=== PATIENT | male | born 1980 | race Caucasian/White ===

== ENCOUNTER 2017-09-24 16:00 | Emergency (ER) | payer MEDICAID ==
[~2017-09-24] VITALS: Ht 175.3 cm; Wt 107.0 kg
[2017-09-24 17:12] LABS: CARBON DIOXIDE 30.1 mmol/L (21-32); CHLORIDE SERUM 103 mmol/L (98-107); GFR1 > 60 mL/min; GLUCOSE SERUM 220 mg/dL (74-106); POTASSIUM SERUM 3.5 mmol/L (3.5-5.1); SODIUM SERUM 140 mmol/L (136-145)
[2017-09-24 17:19] LABS: ALBUMIN 3.6 g/dL (3.4-5.0); ALKALINE PHOSPHATASE 97 U/L (46-116); ALT/SGPT 51 U/L (16-63); AST/SGOT 30 U/L (15-37); TOTAL PROTEIN, SERUM 7.3 g/dL (6.4-8.2)
[2017-09-24 17:24] LABS: BASOPHIL % 0.5 % (0-2); PLATELET COUNT 288 x10^3mcL (130-400); RED CELL DISTRIBUTION WIDTH 12.6 % (11.5-14.5)
[2017-09-24 18:45] VITALS: BP 124/73
== END 2017-09-24 18:45 | disposition home or self-care (01) ==
LOC: ED 16:00
PROVIDERS: Emergency Medicine
DX: R07.89 Other chest pain (principal); I10 Essential (primary) hypertension; E11.9 Type 2 diabetes mellitus without complications
CPT/HCPCS: 36415; Q0092